=== PATIENT | male | born 1965 | race Two or more races ===

== ENCOUNTER 2023-03-26 06:01 | Day surgery (SDC) | payer OTHER ==
[~2023-03-26 06:01] MED LIST: AMBIEN10 MG PO; BELBUCA150 MCG BC; CIALIS5 MG PO; ELIQUIS5 MG PO; NORVASC5 MG PO; SYNTHROID75 MCG PO; VALACYCLOVIR500 MG PO
[2023-03-26] MEDS ORDERED: GABAPENTIN300 M2 PO (14:20)
[2023-03-26] MEDS ORDERED: TRAMADOL HCL50 MG PO (14:20)
== END 2023-03-26 14:50 | disposition home or self-care (01) ==
LOC: CIR.AMB 06:01
PROVIDERS: ATTEND Surgery
DX: N48.6 Induration penis plastica (principal); Z20.822 Contact with and (suspected) exposure to COVID-19; I10 Essential (primary) hypertension; E03.9 Hypothyroidism, unspecified